=== PATIENT | male | born 1985 | race Caucasian/White ===

== ENCOUNTER 2021-02-07 15:05 | Emergency (ER) | payer OTHER ==
--- NOTE | 2021-02-07 17:03 | ED Physician Documentation ---
History of Present Illness - Stated complaint Stated Complaint: BODY ACHES/COUGH/SOA - Chief complaint Chief Complaint: General - History obtained from History obtained from: Patient - Additonal information Additional information: Patient comes emergency department chief complaint of cough and a mild sense of shortness of breath and sore throat for the last 2 days. He states his son tested positive for Covid a couple of days ago and that his other son is starting to get similar symptoms. Patient states he is not vaccinated. No fevers or chills. No prior. No other complaints at this time. Review of Systems Ten Systems: 10 systems reviewed and negative Constitutional: reports: Reviewed and negative Eyes: reports: Reviewed and negative Ears: reports: Reviewed and negative Nose: reports: Reviewed and negative Throat: reports: Sore throat Cardiac: reports: Reviewed and negative Respiratory: reports: Dyspnea, Cough GI: reports: Reviewed and negative : reports: Reviewed and negative Skin: reports: Reviewed and negative Musculoskeletal: reports: Reviewed and negative Neurologic: reports: Reviewed and negative Psychiatric: reports: Reviewed and negative Endocrine: reports: Reviewed and negative Immunocompromised: reports: Reviewed and negative PD PAST MEDICAL HISTORY - Past Surgical History Past Surgical History: No - Present Medications Home Medications: Ambulatory Orders Medication Instructions Recorded Confirmed Cyclobenzaprine [Flexeril] 10 mg PO TID PRN #20 tablet 06/11/15 Hydrocodone/Acetaminophen 1 - 2 each PO Q6H PRN #14 tablet 06/11/15 [Hydrocodon-Acetaminophen 5-325] - Allergies Allergies/Adverse Reactions: Allergies Allergy/AdvReac Type Severity Reaction Status Date / Time tomato [Tomato] Allergy Unknown Verified 02/07/21 15:08 venom-wasp [Wasp Venom] Allergy Unknown Verified 02/07/21 15:08 - Social History Does the pt smoke?: No Smoking Status: Never smoker Does the pt drink ETOH?: Yes Does the pt have substance abuse?: No - Immunizations Immunizations are current?: Yes PD ED PE NORMAL - Vitals Vital signs reviewed: Yes - General General: Alert and oriented X 3, No acute distress, Well developed/nourished - HEENT HEENT: Atraumatic, PERRL, EOMI, Moist mucous membranes, Pharynx benign - Neck Neck: Supple, no meningeal sign - Cardiac Cardiac: RRR, No murmur, Strong equal pulses - Respiratory Respiratory: No respiratory distress, Clear bilaterally - Abdomen Abdomen: Soft, Non tender, Non distended - Derm Derm: Normal color, Warm and dry, No rash - Extremities Extremities: No deformity, No edema - Neuro Neuro: Alert and oriented X 3, 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 We have swabbed him and I have explained to him that this test will be back in the next couple of days. Given that he has a Covid positive family member at home, he should quarantine regardless for the next couple of weeks. We have discussed symptomatic control and the usual indications for return. Departure - Departure Disposition: 01 Home, Self Care Clinical Impression: Exposure to COVID-19 virus Condition: Stable Instructions: COVID-19 [facility] Comments: There is nothing obviously alarming about the appearance of your chest x-ray. However, the radiologist interpretation will be back in a couple of hours and if anything noteworthy is detected as far as subtleties, we will call you at home to let you know. If you wish further evaluation for your ongoing cough, you may ask your DrJaymie for a referral to pulmonology for further evaluation. You have a Covid test pending. You need to self quarantine until the result is done and negative. The results should be done in 24 to 72 hours. We will call with a positive result, but the fastest way to get a negative result for confirmation is to go to the hospital website at [email or web address], click on the "my [facility]" tab and sign up for the patient portal. If other friends or family get sick and need to have a Covid test done, but do not have signs or symptoms that would necessitate being hospitalized, we encourage testing for coronavirus swabbing station at [phone]. They should call to schedule an appointment. Discharge Date/Time: 02/07/21 17:38
--- NOTE | 2021-02-07 17:34 | XRAY Report ---
PROCEDURE: Chest 1 View X-Ray INDICATIONS: chest pain TECHNIQUE: One view of the chest was acquired. COMPARISON: None. FINDINGS: Surgical changes and devices: None. Lungs and pleura: No pleural effusions or pneumothorax. Prominent pulmonary vasculature markings binta aterally. Mediastinum: Mediastinal contours appear normal. Heart size appears prominent. Bones and chest wall: No suspicious bony lesions. Overlying soft tissues appear unremarkable. IMPRESSION: Pulmonary vasculature engorgement is suspected. Heart size appears prominent. Reviewed by: Deven Martinez MD on 02/07/2021 4:33 PM [facility] Approved by: Deven Martinez MD on 02/07/2021 4:33 PM [facility] Station ID: [id number]
[2021-02-07 17:36] VITALS: BP 126/65
== END 2021-02-07 17:38 | disposition home or self-care (01) ==
LOC: ED 15:05
DX: U07.1 COVID-19 (principal)
CPT/HCPCS: 99282; 99284

== ENCOUNTER 2021-05-10 07:07 | Outpatient (CLI) | payer OTHER ==
--- NOTE | 2021-05-10 09:32 | MRI Report ---
PROCEDURE: Knee LT W/O INDICATIONS: PAIN IN UNSPECIFIED KNEE TECHNIQUE: Noncontrast sagittal PD fast spin echo and T2 fast spin echo with fat saturation, sagittal 3-D gradie nt sequence with fat saturation; coronal T1 spin echo and PD fast spin echo with fat saturation, and axial PD fast spin echo with fat saturation through the knee. COMPARISON: None. Findings: Medial meniscus: No surface communication/tear. Lateral meniscus: No surface communication/tear. LIGAMENTS/TENDONS: Patellar tendon: Intact. Distal quadriceps tendon: Intact. Hoffa's fat pad: No evidence of fibrosis or mass. PCL: Intact. ACL: Intact. Lateral collateral ligament complex: No significant abnormality. Posterolateral corner: No significant abnormality. Medial collateral ligament: No significant abnormality.. MARROW: No significant abnormality. CARTILAGE: No significant chondromalacia, cartilaginous laceration or contusion. Muscles: No significant edema or atrophy. A 1.3 x 1 cm T2 hyperintense lesion is seen adjacent to t he popliteus muscle tendinous junction, which may reflect a ganglion. Joint effusion/Sloan's cyst: Small joint effusion. No substantial Sloan's cyst. Subcutaneous soft tissues: No significant edema. IMPRESSION: 1. No evidence of internal derangement. 2. Small joint effusion. Reviewed by: Rachid Ortiz MD on 05/10/2021 9:31 AM [facility] Approved by: Rachid Ortiz MD on 05/10/2021 9:31 AM PST Station ID: [id number]
== END 2021-05-10 07:08 | disposition home or self-care (01) ==
LOC: DI 07:07
PROVIDERS: ATTEND Student in an Organized Health Care Education/Training Program
DX: M25.562 Pain in left knee (principal); M25.462 Effusion, left knee

== ENCOUNTER 2021-08-07 14:39 | Outpatient (CLI) | payer OTHER | END 2021-08-07 14:40 | disposition home or self-care (01) | LOC: RT 14:39 | PROVIDERS: ATTEND Student in an Organized Health Care Education/Training Program | DX: J45.909 Unspecified asthma, uncomplicated (principal); Z86.16 Personal history of COVID-19 | CPT/HCPCS: 94010 ==